=== PATIENT | female | born 1985 | race Caucasian/White ===

== ENCOUNTER 2017-05-23 21:21 | Emergency (ER) | payer BC, OTHER ==
[~2017-05-23] VITALS: Ht 162.6 cm; Wt 57.7 kg
[~2017-05-23 21:21] MED LIST: BACTDS PO; HYDR-3498 PO; IBUP-1542 PO
[2017-05-23 21:32] VITALS: Ht 162.6 cm; Wt 57.7 kg
--- NOTE | 2017-05-23 21:47 | ERD ---
ER Documentation Chief Complaint Chief Complaint vaginal bleeding x 1 day, states 8 weeks HPI this 31 year female, 8 weeks , vaginal bleeding today, 2 days of s; bailey, pt saw RN NEW GRADUATE 2 days ago and heard HB . pt repot pelvic and back pain. using enio pad changing frequency ROS All systems reviewed and are negative except as per history of present illness. Medications Home Meds Active Scripts Hydrocodone/Acetaminophen ([place] 5-325 Tablet) 1 Each Tablet, 1 TAB PO Q6H Y for PAIN, #7 TAB Prov:SHIRA,BANG 05/24/17 Acetaminophen* (Tylophen*) 500 Mg Capsule, 1 CAP PO Q6H Y for PAIN AND OR ELEVATED TEMP, #20 CAP Prov:SHIRA,BANG 05/24/17 Ibuprofen* (Motrin*) 600 Mg Tab, 600 MG PO Q6, #30 TAB Prov:RAQUEL ADAN PA-C 04/28/15 Hydrocodone Bit-Acetaminophen* ([place]*) 5-325 Mg Tab, 1 TAB PO Q6 Y for PAIN, # 10 TAB Prov:RAQUEL ADAN PA-C 04/28/15 Sulfamethoxazole-Trimethoprim* (Bactrim* DS) 800-160 Mg Tab, 1 TAB PO BID for 5 Days, TAB Prov:TAYLOR GANNON DO 02/12/15 Allergies Allergies: Coded Allergies: No Known Allergy (Unverified , 02/12/15) PMhx/Soc Hx Alcohol Use: No Hx Substance Use: No Hx Tobacco Use: No Physical Exam Vitals Vital Signs Date Time Temp Pulse Resp B/P Pulse Ox O2 Delivery O2 Flow Rate FiO2 05/23/17 21:32 98.8 78 20 95/61 98 Vitals stable, triage notes reviewed Physical Exam Const: Well-nourished well-appearing well-hydrated 31-year-old female in no acute distress Head: Eyes: ENT: Neck: Resp: Cardio: Abd: Soft, pelvic tenderness, no CVA tenderness Skin: Back: Ext: Neur: Awake and alert Psych: Normal Mood and Affect Result Diagram: 05/23/17 8221 Results 24 hrs Laboratory Tests Test 05/23/17 22:29 05/23/17 22:30 05/23/17 22:31 Beta HCG, Quantitative 8631.7mIU/ml Urine Color YELLOW Urine Clarity CLEAR Urine pH 6.0 Urine Specific [place] 1.018 Urine Ketones NEGATIVEmg/dL Urine Nitrite NEGATIVEmg/dL Urine Bilirubin NEGATIVEmg/dL Urine Urobilinogen NEGATIVEmg/dL Urine Leukocyte Esterase NEGATIVELeu/ul Urine Microscopic RBC 160/HPF Urine Microscopic WBC 0/HPF Urine Hemoglobin 2+mg/dL Urine Glucose NEGATIVEmg/dL Urine Total Protein 1+mg/dl White Blood Count 13.610^3/ul Red Blood Count 4.2910^6/ul Hemoglobin 12.5g/dl Hematocrit 36.6% Mean Corpuscular Volume 85.3fl Mean Corpuscular Hemoglobin 29.1pg Mean Corpuscular Hemoglobin Concent 34.2g/dl Red Cell Distribution Width 12.9% Platelet Count 33240^3/UL Mean Platelet Volume 10.3fl Neutrophils % 86.0% Lymphocytes % 9.9% Monocytes % 3.2% Eosinophils % 0.4% Basophils % 0.1% Nucleated Red Blood Cells % 0.0/100WBC Neutrophils # 11.710^3/ul Lymphocytes # 1.410^3/ul Monocytes # 0.410^3/ul Eosinophils # 0.110^3/ul Basophils # 0.010^3/ul Nucleated Red Blood Cells # 0.010^3/ul Current Medications Medications (Trade) Dose Ordered Sig/Erendira Route PRN Reason Start Time Stop Time Status Last Admin Dose Admin Acetaminophen/ Hydrocodone Bitart 1 tab 1 tab ONCE ONCE PO 05/23/17 22:00 05/23/17 22:01 DC Sodium Chloride 1,000 ml @ 1,000 mls/hr Q1H ONCE IV 05/23/17 23:00 05/23/17 23:59 DC 05/23/17 23:29 Sodium Chloride (NS) 1,000 ml @ 1,000 mls/hr Q1H ONCE IV 05/24/17 01:30 05/24/17 02:29 DC 05/24/17 01:27 Procedures/MDM PROCEDURE: US OB. CLINICAL INDICATION: Vaginal bleeding. Positive TECHNIQUE: Transabdominal sonographic views of the pelvis are available for review. COMPARISON: No prior studies are available for comparison. FINDINGS: Uterus: No evidence of masses and normal in size estimated at 8.3 x 7.1 x 4.6 cm. Endometrial cavity: Intrauterine round anechoic structure measured as a gestational sac, 0.5 cm, the age estimated at 5 weeks. No embryonic pole or yolk sac is present. No evidence of subchorionic hemorrhage. There is anechoic fluid seen within the endocervical canal. Right ovary/adnexa: The ovary is not visualized. There is no evidence of adnexal mass or free fluid. Left ovary/adnexa: The ovary is not visualized. There is no evidence of adnexal mass or free fluid. Cul-de-sac: There is no free fluid. RPTAT:HJJR IMPRESSION: 1. Small anechoic structure within the endometrial cavity believed to reflect a gestational sac at an estimated gestational age of 5 weeks. 2. As no embryonic pole is visualized and viability is therefore uncertain, correlation with serial serum beta HCG levels and follow-up pelvic ultrasound is recommended. 3. Fluid is present within the endocervical canal. 4. The ovaries are not visualized. No evidence of adnexal mass. Physician Shruthi Date Time Electronically viewed and signed by Physician Shruthi on 05/23/2017 22:54 This 31-year-old female presents to emergency department for evaluation of vaginal bleeding, patient reports that she is approximately 8 weeks , has seen her OB. Patient reports that she has had a miscarriage in the past, . Patient reports pelvic pain, denies dysuria. Emergency room course today includes routine laboratory testing including beta quant, and ultrasound. Serology results elevated WBCs this is not abnormal in , beta quant 8631.7., Ultrasound radiologist's interpretation small anechoic structure within the endometrial cavity believed to reflect a gestational sac at an estimated gestational age of 5 weeks. As no embryonic pole is visualized and visibility is therefore uncertain correlation with serial serum beta hCG levels and follow-up pelvic ultrasound is recommended. Fluid is present within the endocervical canal the ovaries are not visualized no evidence of adnexal mass. Plan plan to discharge patient home to return in 48 hours for repeat diagnostic testing as recommended above, return to emergency room for worsening of symptoms , saturating peripads greater than 1 pad every 2 hours. Call our chaser apprentice in the morning patient is stable with no new complaints during ER course, clinically there is no current evidence to suggest meningitis, sepsis, acute abdomen, urinary tract infection, or any other emergent condition appearing to require further evaluation or hospitalization. I feel the patient is stable for discharge at this time. I have discussed results, examination findings, the treatment plan with the patient and family present prior to discharge. Indications for emergent reevaluation, side effects of medication were also discussed. All questions were answered. Patient verbalizes understanding and agrees with plan of care. Unable to be discharged, reports that she passed products of conception, and is bleeding, patient is pale, on-call labor is , discussed change in status, physician request pelvic exam to visualize ox . Discussed possibility of implementing Cytotec 100 mg 3 times daily, plan discussed with patient she refuses to look exam, patient's color has improved, blood pressure is stable second liter of normal saline prescribed, patient agrees to have additional ultrasound, assess uterine lining and the possible gestational sac seen only a few hours ago on last ultrasound. Patient reports saturating 3 peripads since arrival in emergency department at 12:00. PROCEDURE: US OB. CLINICAL INDICATION: Possible missed . Vaginal bleeding follow-up large clots since last examination. Clinical estimate gestational age is 9 weeks 0 days with estimated date of delivery 12/27/2017 TECHNIQUE: Transabdominal views of the pelvis are available for review. COMPARISON: US PELVIS 05/23/2017 FINDINGS: [place]-rump length: 0.5 cm, 6 weeks 1 day gestational age Mean gestational sac diameter: 1.91 cm, 6 weeks 5 days gestational age heart rate: No embryonic heart activity seen. Ultrasound estimated gestational age: 6 weeks 3 days based on crown-rump length and mean gestational sac diameter. Estimated date of delivery: 01/14/2018 No ovarian or adnexal mass lesion is seen. There is no free fluid. IMPRESSION: Transabdominal ultrasound only was performed. Single intrauterine with an estimated gestational age of 6 weeks 3 days based on crown-rump length and mean gestational sac diameter. No embryonic heart activity seen. The crown- rump length of the embryo equals 5 mm. This could be secondary to missed /failed intrauterine . However, an early intrauterine is not excluded and correlation with serial quantitative beta HCGs and follow-up ultrasound is recommended. Electronically viewed and signed by .Yrn Solis MD, MD on 05/24/2017 02:52 Radiology interpretation as read above, transabdominal ultrasound only was performed with single intrauterine with an estimated gestational age of 6 weeks 3 days based on crown-rump length and mean gestational sac diameter. No embryonic heart activity is seen the crown-rump l be discharged home instructed to return to emergency department 48 hours for repeat ultrasound and beta quant hCG. Return to emergency department for increased bleeding, dizziness, or worsening of pain, back pain, Patient verbalizes understanding, agrees with plan of care. Departure Diagnosis: Primary Impression: Vaginal bleeding in patient at less than 20 weeks gestation Additional Impression: Threatened in early Condition: Good Patient Instructions: Bleeding During Early , Possible Miscarriage ( Threatened ) Additional Instructions: Thank you for for coming to [facility] for your care today. Please ask your nurse or provider if you have questions about your care today and do not leave until all your questions have been answered. Please use any medications given as directed and follow-up with your doctor (or the doctor you were referred to) in the next 2-3 days. If you do not have a primary care doctor you may follow up [place] [facility] [place] You may also use motrin and tylenol as needed for fever and/or pain unless instructed otherwise by your provider or nurse. Indications for more urgent follow-up have been discussed, but you may return to the Emergency Department at ANY time for any worrisome or worsening symptoms. If you have abdominal pain, please know that no test or exam you received is perfect and you should follow up within 8 hours for continued pain. If you had any imaging studies today, such as an X-Ray or CT Scan, these studies will be reviewed later by a radiologist. You will be called if there are important findings that were not identified today, so make sure the contact information you provided at registration is correct. If you received any narcotic pain control medicine today, such as Vicodin, Morphine or Dilaudid, your coordination and judgment may be affected for a number of hours. Please do not drive or operate heavy machinery, and you may want someone to assist you at home. If you were given a prescription for narcotic medication, be aware that it is very addictive- use sparingly and only if necessary. BANG SILVA May 23, 2017 21:47
[2017-05-23] MEDS ORDERED: HYDROCODONE/APAP (5/325) TAB PO ONE (22:00)
[2017-05-23 22:44] LABS: BASOPHILS % 0.1 % (0.0-2.0); EOSINOPHILS # 0.1 10^3/ul (0.0-0.5); EOSINOPHILS % 0.4 % (0.0-7.0); HEMATOCRIT 36.6 % (37.0-47.0); HEMOGLOBIN 12.5 g/dl (12.0-16.0); LYMPHOCYTES # 1.4 10^3/ul (0.8-2.9); LYMPHOCYTES % 9.9 % (15.0-51.0); MEAN CORPUSCULAR HEMOGLOBIN 29.1 pg (29.0-33.0); MEAN CORPUSCULAR HGB CONC 34.2 g/dl (32.0-37.0); MEAN CORPUSCULAR VOLUME 85.3 fl (82.0-101.0); MEAN PLATELET VOLUME 10.3 fl (7.4-10.4); MONOCYTE # 0.4 10^3/ul (0.3-0.9); MONOCYTES % 3.2 % (0.0-11.0); NEUTROPHIL # 11.7 10^3/ul (1.6-7.5); PLATELET COUNT 269 10^3/UL (140-415); RED BLOOD COUNT 4.29 10^6/ul (4.20-5.40); RED CELL DISTRIBUTION WIDTH 12.9 % (11.5-14.5); WHITE BLOOD COUNT 13.6 10^3/ul (4.8-10.8)
--- NOTE | 2017-05-23 22:54 | RADRPT ---
PROCEDURE: US OB. CLINICAL INDICATION: Vaginal bleeding. Positive TECHNIQUE: Transabdominal sonographic views of the pelvis are available for review. COMPARISON: No prior studies are available for comparison. FINDINGS: Uterus: No evidence of masses and normal in size estimated at 8.3 x 7.1 x 4.6 cm. Endometrial cavity: Intrauterine round anechoic structure measured as a gestational sac, 0.5 cm, th e age estimated at5 weeks. No embryonic pole or yolk sac is present. No evidence of subchorionic he morrhage. There is anechoic fluid seen within the endocervical canal. Right ovary/adnexa: The ovary is not visualized. There is no evidence of adnexal mass or free flui d. Left ovary/adnexa: The ovary is not visualized. There is no evidence of adnexal mass or free fluid . Cul-de-sac: There is no free fluid. RPTAT:HJJR IMPRESSION: 1. Small anechoic structure within the endometrial cavity believed to reflect a gestational sac at an estimated gestational age of 5 weeks. 2. As no embryonic pole is visualized and viability is therefore uncertain, correlation with serial serum beta HCG levels and follow-up pelvic ultrasound is recommended. 3. Fluid is present within the endocervical canal. 4. The ovaries are not visualized. No evidence of adnexal mass. Physician Shruthi Date Time Electronically viewed and signed by Physician Shruthi on 05/23/2017 22:54 /
[2017-05-23] MEDS ORDERED: SOD CHLORIDE 0.9% 1,000 ML IV ONE (23:00)
[2017-05-23 23:43] LABS: ADD UMIC YES; UR ASCORBIC ACID 40 mg/dL (NEGATIVE); UR BILIRUBIN (Dip) NEGATIVE (NEGATIVE); UR BLOOD (Dip) 2+ mg/dL (NEGATIVE); UR CLARITY CLEAR (CLEAR); UR COLOR YELLOW (YELLOW); UR GLUCOSE (Dip) NEGATIVE (NEGATIVE); UR KETONES (Dip) NEGATIVE (NEGATIVE); UR LEUKOCYTE ESTERASE (Dip) NEGATIVE Leu/ul (NEGATIVE); UR NITRITE (Dip) NEGATIVE (NEGATIVE); UR RBC 160 /HPF (0-5); UR SPECIFIC GRAVITY (Dip) 1.018 (1.003-1.030); UR TOTAL PROTEIN (Dip) 1+ mg/dl (NEGATIVE); UR UROBILINOGEN (Dip) NEGATIVE (NEGATIVE)
[2017-05-24] MEDS ORDERED: ACET500C5 PO (00:23)
[2017-05-24] MEDS ORDERED: HYDR-906 PO (00:23)
[2017-05-24] MEDS ORDERED: SOD CHLORIDE 0.9% 1,000 ML IV ONE (01:30)
--- NOTE | 2017-05-24 02:52 | RADRPT ---
PROCEDURE: US OB. CLINICAL INDICATION: Possible missed . Vaginal bleeding follow-up large clots since last examination. Clinical estimate gestational age is 9 weeks 0 days with estimated date of delivery TECHNIQUE: Transabdominal views of the pelvis are available for review. COMPARISON: US PELVIS 05/23/2017 FINDINGS: [place]-rump length:0.5 cm, 6 weeks 1 day gestational age Mean gestational sac diameter: 1.91 cm, 6 weeks 5 days gestational age heart rate:No embryonic heart activity seen. Ultrasound estimated gestational age:6 weeks 3 days based on crown-rump length and mean gestational sac diameter. Estimated date of delivery: 01/14/2018 No ovarian or adnexal mass lesion is seen. There is no free fluid. IMPRESSION: Transabdominal ultrasound only was performed. Single intrauterine with an estimated gestat ional age of 6 weeks 3 days based on crown-rump length and mean gestational sac diameter. No embryon ic heart activity seen. The crown-rump length of the embryo equals 5 mm. This could be secondary to missed /failed intrauterine . However, an early intrauterine is not excl uded and correlation with serial quantitative beta HCGs and follow-up ultrasound is recommended. RPTAT: HJES .Yrn Solis MD, MD Date Time Electronically viewed and signed by .Yrn Solis MD, on 05/24/2017 02:52 .S/
== END 2017-05-24 03:54 | disposition home or self-care (01) ==
LOC: FTE 21:21
DX: O20.0 Threatened abortion (principal); Z3A.01 Less than 8 weeks gestation of pregnancy
CPT/HCPCS: 36415; 76801; 81001; 84702; 85025; J7030; Z7502

== ENCOUNTER 2017-05-25 13:36 | Emergency (ER) | payer BC ==
[~2017-05-25] VITALS: Ht 162.6 cm; Wt 58.0 kg
[~2017-05-25 13:36] MED LIST changes: +ACET500C5 PO; +HYDR-906 PO
[2017-05-25 13:40] VITALS: Ht 162.6 cm; Wt 58.0 kg
[2017-05-25] MEDS ORDERED: HYDROCODONE/APAP (5/325) TAB PO STA (16:49)
--- NOTE | 2017-05-25 17:08 | ERD ---
ER Documentation Chief Complaint Chief Complaint vaginal bleeding "20 pads in 24 hours", 8 weeks preg. was seen here 2 days HPI This , 31-year-old female presents to emergency department with for reevaluation of missed miscarriage. Patient was seen by myself 48 hours ago instructed to return for beta qualitative and repeat ultrasound. Patient reports that she has continued to bleed, it was worse the night she left the ER but had has subsided, she continues to change her enio-pad every 2-3 hours. Patient reports abdominal cramping treated with [facility] she reports that pain medication helps especially yesterday when she was on her feet more. Patient denies any dizziness, shortness of breath, palpitations, or chest pain. Chart review Ultrasound FINDINGS from 05/23/17: [place]-rump length: 0.5 cm, 6 weeks 1 day gestational age Mean gestational sac diameter: 1.91 cm, 6 weeks 5 days gestational age heart rate: No embryonic heart activity seen. Ultrasound estimated gestational age: 6 weeks 3 days based on crown-rump length and mean gestational sac diameter. Estimated date of delivery: 01/14/2018 No ovarian or adnexal mass lesion is seen. There is no free fluid. ROS All systems reviewed and are negative except as per history of present illness. Medications Home Meds Active Scripts Hydrocodone/Acetaminophen ([place] 5-325 Tablet) 1 Each Tablet, 1 TAB PO Q6H Y for PAIN, #7 TAB Prov:SHIRA,BANG 05/24/17 Acetaminophen* (Tylophen*) 500 Mg Capsule, 1 CAP PO Q6H Y for PAIN AND OR ELEVATED TEMP, #20 CAP Prov:SHIRA,BANG 05/24/17 Ibuprofen* (Motrin*) 600 Mg Tab, 600 MG PO Q6, #30 TAB Prov:RAQUEL ADAN PA-C 04/28/15 Hydrocodone Bit-Acetaminophen* ([place]*) 5-325 Mg Tab, 1 TAB PO Q6 Y for PAIN, # 10 TAB Prov:RAQUEL ADAN PA-C 04/28/15 Sulfamethoxazole-Trimethoprim* (Bactrim* DS) 800-160 Mg Tab, 1 TAB PO BID for 5 Days, TAB Prov:TAYLOR GANNON DO 02/12/15 Allergies Allergies: Coded Allergies: No Known Allergy (Unverified , 05/25/17) PMhx/Soc Medical and Surgical Hx: pt denies Surgical Hx Hx Miscellaneous Medical Probl: Yes (endomitrosis) Hx Alcohol Use: No Hx Substance Use: No Hx Tobacco Use: No Physical Exam Vitals Vital Signs Date Time Temp Pulse Resp B/P Pulse Ox O2 Delivery O2 Flow Rate FiO2 05/25/17 13:40 98.9 80 18 114/62 98 Vitals stable, triage notes reviewed Physical Exam Const: Well-nourished well-hydrated 31-year-old female in no acute distress Head: Eyes: Normal Conjunctiva ENT: Normal External Ears, Nose and Mouth. Membranes moist Neck: Resp: Cardio: Abd: Abdomen soft, symmetric, low pelvic tenderness, no CVA tenderness, no epigastric tenderness Skin: Back: No midline or flank tenderness Ext: Neur: Awake and alert Psych: Normal Mood and Affect Result Diagram: 05/25/17 1708 Results 24 hrs Laboratory Tests Test 05/25/17 17:05 White Blood Count 7.510^3/ul Red Blood Count 4.0110^6/ul Hemoglobin 11.6g/dl Hematocrit 35.0% Mean Corpuscular Volume 87.3fl Mean Corpuscular Hemoglobin 28.9pg Mean Corpuscular Hemoglobin Concent 33.1g/dl Red Cell Distribution Width 13.2% Platelet Count 74494^3/UL Mean Platelet Volume 10.4fl Neutrophils % 56.4% Lymphocytes % 36.5% Monocytes % 4.7% Eosinophils % 1.7% Basophils % 0.4% Nucleated Red Blood Cells % 0.0/100WBC Neutrophils # 4.210^3/ul Lymphocytes # 2.710^3/ul Monocytes # 0.410^3/ul Eosinophils # 0.110^3/ul Basophils # 0.010^3/ul Nucleated Red Blood Cells # 0.010^3/ul Urine Color YELLOW Urine Clarity CLEAR Urine pH 5.0 Urine Specific [place] 1.012 Urine Ketones NEGATIVEmg/dL Urine Nitrite NEGATIVEmg/dL Urine Bilirubin NEGATIVEmg/dL Urine Urobilinogen NEGATIVEmg/dL Urine Leukocyte Esterase NEGATIVELeu/ul Urine Microscopic RBC 43/HPF Urine Microscopic WBC 1/HPF Urine Hemoglobin 3+mg/dL Urine Glucose NEGATIVEmg/dL Urine Total Protein NEGATIVEmg/dl Beta HCG, Quantitative 1736.1mIU/ml Current Medications Medications (Trade) Dose Ordered Sig/Erendira Route PRN Reason Start Time Stop Time Status Last Admin Dose Admin Acetaminophen/ Hydrocodone Bitart ([place] (5/325)) 1 tab ONCE STAT PO 05/25/17 16:49 05/25/17 16:53 DC 05/25/17 17:08 Procedures/MDM PROCEDURE: US OB. CLINICAL INDICATION: Vaginal bleeding. TECHNIQUE: Transabdominal sonographic views of the pelvis are available for review. COMPARISON: 05/24/2017. FINDINGS: The patient's last menstrual period is 03/28/2017. The uterus is anteverted and measures 8.6 x 7.9 x 6.9 cm. No intrauterine gestational sac is identified. Endometrium is 5 mm in thickness. Right ovary is not visualized. The left ovary measures 2.4 x 1.9 x 2.0 cm and demonstrates normal Doppler flow. There is no free fluid. IMPRESSION: 1. No intrauterine gestational sac identified, likely representing a completed . 2. Right ovary not visualized. RPTAT: AAEE Nancy Genao Physician Date Time Electronically viewed and signed by Nancy Genao Physician on 05/25/2017 18:52 This , 31-year-old female, here for repeat beta quant and ultrasound, she was seen by myself on 05/23/17 in the process of miscarrying, last ultrasound showed intrauterine at 6 weeks ultrasonic age. Patient reports that bleeding has continued, changing enio-pad every 2-3 hours. Patient reports that bleeding has decreased today. She believes she passed the gestational sac states that she saw it. Emergency room course includes history and physical exam, beta hCG is decreasing as expected beta hCG 48 hours ago was 8631.7, today is 1736.1. Ultrasound reveals no intrauterine gestational sac identified , likely representing a completed . Right ovary is not visualized. Plan to discharge patient home to follow-up with [employer] RE[employer] for return to work clearance. Return to emergency department for recurrent bleeding, or worsening of pain. Patient is stable with no new complaints during ER course, clinically there is no current evidence to suggest incomplete , ectopic , acute abdomen, acute coronary syndromes, pulmonary embolism or any other emergent condition appearing to require further evaluation or hospitalization. I feel the patient is stable for discharge at this time. I have discussed results, examination findings, the treatment plan with the patient and family present prior to discharge. Indications for emergent reevaluation, side effects of medication were also discussed. All questions were answered. Patient verbalizes understanding and agrees with plan of care. Departure Diagnosis: Primary Impression: Complete Condition: Good Patient Instructions: Miscarriage, Spontaneous (Completed) Additional Instructions: Thank you for for coming to [facility] for your care today. Please ask your nurse or provider if you have questions about your care today and do not leave until all your questions have been answered. Please use any medications given as directed and follow-up with your doctor (or the doctor you were referred to) in the next 2-3 days. If you do not have a primary care doctor you may follow up at the [facility] [place] (listed below). You may also use motrin and tylenol as needed for fever and/or pain unless instructed otherwise by your provider or nurse. Indications for more urgent follow-up have been discussed, but you may return to the Emergency Department at ANY time for any worrisome or worsening symptoms. If you have abdominal pain, please know that no test or exam you received is perfect and you should follow up within 8 hours for continued pain. If you had any imaging studies today, such as an X-Ray or CT Scan, these studies will be reviewed later by a radiologist. You will be called if there are important findings that were not identified today, so make sure the contact information you provided at registration is correct. If you received any narcotic pain control medicine today, such as Vicodin, Morphine or Dilaudid, your coordination and judgment may be affected for a number of hours. Please do not drive or operate heavy machinery, and you may want someone to assist you at home. If you were given a prescription for narcotic medication, be aware that it is very addictive- use sparingly and only if necessary. BANG SILVA May 25, 2017 17:08
[2017-05-25 17:20] LABS: BASOPHILS % 0.4 % (0.0-2.0); EOSINOPHILS # 0.1 10^3/ul (0.0-0.5); EOSINOPHILS % 1.7 % (0.0-7.0); HEMOGLOBIN 11.6 g/dl (12.0-16.0); LYMPHOCYTES # 2.7 10^3/ul (0.8-2.9); LYMPHOCYTES % 36.5 % (15.0-51.0); MEAN CORPUSCULAR HEMOGLOBIN 28.9 pg (29.0-33.0); MEAN CORPUSCULAR HGB CONC 33.1 g/dl (32.0-37.0); MEAN CORPUSCULAR VOLUME 87.3 fl (82.0-101.0); MEAN PLATELET VOLUME 10.4 fl (7.4-10.4); MONOCYTE # 0.4 10^3/ul (0.3-0.9); MONOCYTES % 4.7 % (0.0-11.0); NEUTROPHIL # 4.2 10^3/ul (1.6-7.5); NEUTROPHILS % 56.4 % (39.0-77.0); PLATELET COUNT 270 10^3/UL (140-415); RED BLOOD COUNT 4.01 10^6/ul (4.20-5.40); RED CELL DISTRIBUTION WIDTH 13.2 % (11.5-14.5); WHITE BLOOD COUNT 7.5 10^3/ul (4.8-10.8)
[2017-05-25 17:25] LABS: ADD UMIC YES; UR ASCORBIC ACID NEGATIVE (NEGATIVE); UR BILIRUBIN (Dip) NEGATIVE (NEGATIVE); UR BLOOD (Dip) 3+ mg/dL (NEGATIVE); UR CLARITY CLEAR (CLEAR); UR COLOR YELLOW (YELLOW); UR GLUCOSE (Dip) NEGATIVE (NEGATIVE); UR KETONES (Dip) NEGATIVE (NEGATIVE); UR LEUKOCYTE ESTERASE (Dip) NEGATIVE Leu/ul (NEGATIVE); UR NITRITE (Dip) NEGATIVE (NEGATIVE); UR RBC 43 /HPF (0-5); UR SPECIFIC GRAVITY (Dip) 1.012 (1.003-1.030); UR TOTAL PROTEIN (Dip) NEGATIVE (NEGATIVE); UR UROBILINOGEN (Dip) NEGATIVE (NEGATIVE)
--- NOTE | 2017-05-25 18:53 | RADRPT ---
PROCEDURE: US OB. CLINICAL INDICATION: Vaginal bleeding. TECHNIQUE: Transabdominal sonographic views of the pelvis are available for review. COMPARISON: 05/24/2017. FINDINGS: The patient's last menstrual period is 03/28/2017. The uterus is anteverted and measures 8.6 x 7.9 x 6.9 cm. No intrauterine gestational sac is identified. Endometrium is 5 mm in thickness. Right ovary is not visualized. The left ovary measures 2.4 x 1.9 x 2.0 cm and demonstrates normal Doppler flow. There is no free fluid. IMPRESSION: 1. No intrauterine gestational sac identified, likely representing a completed . 2. Right ovary not visualized. RPTAT: AAEE Nancy Genao Physician Date Time Electronically viewed and signed by Nancy Genao Physician on 05/25/2017 18:52 PH/
== END 2017-05-25 19:41 | disposition home or self-care (01) ==
LOC: FTE 13:36
DX: O03.9 Complete or unspecified spontaneous abortion without complication (principal); R10.2 Pelvic and perineal pain
CPT/HCPCS: 36415; 76801; 81001; 84702; 85025; Z7502; Z7610